=== PATIENT | male | born 1990 ===

== ENCOUNTER 2018-10-19 21:11 | Emergency (ER) | payer SELFPAY ==
[2018-10-19 21:43] VITALS: BP 129/87; PULSE 84; RESP 14; TEMP 98.9; O2SAT 97
--- NOTE | 2018-10-19 22:16 | C.PDOC ---
History Of Present Illness 28 year old male presents to the ED c/o sore throat and painful swallowing for the past 6 days. Patient denies fever, chills, facial swelling, SOB, wheezing, rash, cough, congestion. Time Seen by Provider: 10/19/18 21:35 Chief Complaint (Nursing): ENT Problem History Per: Patient History/Exam Limitations: None Onset/Duration Of Symptoms: Days (6) Current Symptoms Are (Timing): Still Present Quality (Mouth/Throat): Swelling Anticoagulant/Antiplatlet Use?: No Recent Aspirin Use: No Past Medical History Reviewed: Historical Data, Nursing Documentation, Vital Signs Vital Signs: Last Vital Signs Temp 98.9 F 10/19/18 21:28 Pulse 84 10/19/18 21:28 Resp 14 10/19/18 21:28 BP 129/87 10/19/18 21:28 Pulse Ox 97 10/19/18 21:28 - Medical History PMH: No Chronic Diseases Surgical History: No Surg Hx Family History: States: Unknown Family Hx - Social History Hx Alcohol Use: No Hx Substance Use: No - Immunization History Hx Tetanus Toxoid Vaccination: No Hx Influenza Vaccination: No Hx Pneumococcal Vaccination: No Review Of Systems Constitutional: Negative for: Fever, Chills, Weakness Eyes: Negative for: Redness, Other (scleral icterus) ENT: Positive for: Throat Pain. Negative for: Mouth Swelling Respiratory: Negative for: Cough, Shortness of Breath Gastrointestinal: Negative for: Nausea, Vomiting, Diarrhea Musculoskeletal: Negative for: Back Pain Skin: Negative for: Rash Neurological: Negative for: Weakness, Numbness, Headache, Dizziness Physical Exam - Physical Exam Appears: Well, Non-toxic, No Acute Distress Skin: Normal Color, Warm, No Rash Head: Atraumatic, Normacephalic Eye(s): bilateral: Normal Inspection (no scleral icterus), PERRL, EOMI Ear(s): Bilateral: Normal (no drainage) Nose: Normal Oral Mucosa: Moist Throat: Exudate (bilateral ), Other (swelling and injection to bilateral tonsils. Uvula midline and airway patent) Neck: Normal ROM, Supple Chest: Symmetrical Respiratory: No Accessory Muscle Use, Other (normal inspiratory effort) Neurological/Psych: Oriented x3, Normal Speech ED Course And Treatment O2 Sat by Pulse Oximetry: 97 (ON RA) Pulse Ox Interpretation: Normal Medical Decision Making Medical Decision Making: Plan: * Amoxicillin 500 mg PO * Decadron 10 mg IM * Motrin 600 mg PO * Throat culture * Rapid strep Strep was negative, still will treat for tonsillitis due to clinical presentation. Disposition Counseled Patient/Family Regarding: Diagnosis, Need For Followup, Rx Given - Disposition Disposition: HOME/ ROUTINE Disposition Time: 22:14 Condition: STABLE Prescriptions: Amoxicillin 500 mg PO TID #15 tablet Ibuprofen [Motrin Tab] 800 mg PO TID PRN #21 tab PRN Reason: Pain, Moderate (4-7) Instructions: Sore Throat, Adult (DC) Forms: [employer] (Dutch), General Discharge Instructions - Clinical Impression Clinical Impression: Acute tonsillitis - PA / [employer] / Resident Statement MD/DO has reviewed & agrees with the documentation as recorded. - Scribe Statement The provider has reviewed the documentation as recorded by the Scribe Estuardo Asencio All medical record entries made by the Scribe were at my direction and personally dictated by me. I have reviewed the chart and agree that the record accurately reflects my personal performance of the history, physical exam, medical decision making, and the department course for this patient. I have also personally directed, reviewed, and agree with the discharge instructions and disposition.
== END 2018-10-19 22:27 | disposition home or self-care (01) ==
LOC: C.ER 21:11
DX: J03.90 Acute tonsillitis, unspecified (principal)
CPT/HCPCS: 87070; 87430; 96372; 99283; J1100